=== PATIENT | male | born 1930 | race Two or more races ===

== ENCOUNTER 2017-12-08 18:06 | Emergency (ER) | payer OTHER ==
[~2017-12-08] VITALS: Ht 167.6 cm; Wt 62.1 kg
[2017-12-08 19:03] LABS: HEMATOCRIT 38.4 % (38.0-50.0); HEMOGLOBIN 12.8 G/DL (12.5-16.6); MCH 32.8 PG (29.0-34.0); MCHC 33.3 G/DL (30.0-36.0); MCV 98.5 FL (86-99); PLATELET COUNT 187 K/uL (156-360); RBC DIS.WIDTH-CV 13.4 % (11.8-14.6); RBC DIS.WIDTH-SD 47.8 % (39-53); WHITE BLOOD COUNT 7.2 K/uL (4.1-10.2)
[2017-12-08 19:12] LABS: CHLORIDE 101 mEq/L (99-109); POTASSIUM 4.4 mEq/L (3.7-5.4); SODIUM 130 mEq/L (136-147)
[2017-12-08 19:14] LABS: GLUCOSE 94 mg/dL (70-99)
[2017-12-08 19:18] LABS: CREATININE 1.1 mg/dL (0.6-1.3); GFR ESTIMATE (CALCULATED) > 59 mL/min/ (58.99-99999)
[2017-12-08 19:19] LABS: UREA NITROGEN (BUN) 22 mg/dL (9-23)
[2017-12-08 19:28] LABS: TROP-I INTERPRETATION NEGATIVE; TROPONIN-I 0.06 ng/mL (0.0-0.30)
[2017-12-08 20:00] VITALS: BP 112/84
== END 2017-12-08 23:40 | disposition home or self-care (01) ==
LOC: EME 18:06
DX: R06.02 Shortness of breath (principal); R00.0 Tachycardia, unspecified; I25.2 Old myocardial infarction; I10 Essential (primary) hypertension; Z95.5 Presence of coronary angioplasty implant and graft; Z87.891 Personal history of nicotine dependence
CPT/HCPCS: 71046; 80048; 84484; 85027; 93005; 99281; 99284